=== PATIENT | male | born 1970 | race Caucasian/White ===

== ENCOUNTER 2018-01-17 17:47 | Emergency (ER) | payer OTHER ==
[~2018-01-17] VITALS: Ht 177.8 cm; Wt 149.7 kg
[~2018-01-17 17:47] MED LIST: CIALIS5 MG
[2018-01-17] MEDS ORDERED: PRISTIQ ER50 MG PO (18:11)
[2018-01-17] MEDS ORDERED: CARAFATE1 GM/10 ML PO (18:11)
[2018-01-17] MEDS ORDERED: OMEPRAZOLE40 MG (18:11)
[2018-01-17] MEDS ORDERED: TRAZODONE HCL50 MG PO (18:11)
[2018-01-17 18:29] VITALS: BP 156/95
[2018-01-17] MEDS ORDERED: TETANUS/DIPHTHERIA TOX ADULT 0.5 ML SYR IM ONE (18:30)
== END 2018-01-17 18:32 | disposition home or self-care (01) ==
LOC: FSED 17:47
DX: S51.012A Laceration without foreign body of left elbow, initial encounter (principal); W01.0XXA Fall on same level from slipping, tripping and stumbling without subsequent striking against object, initial encounter; Y92.008 Other place in unspecified non-institutional (private) residence as the place of occurrence of the external cause
CPT/HCPCS: 90471; 90714; 99283